=== PATIENT | male | born 1965 | race Caucasian/White ===

== ENCOUNTER 2016-08-10 19:00 | Inpatient (IN) | payer OTHER ==
--- NOTE | ~2016-08-10 | PA ---
Unit #: [id number] #: [id number] Patient: ANGELIQUE JOHNSON [id number] [place] [address] [id number] I MR#: [id number] NAME: ANGELIQUE JOHNSON ROOM: P204 Age: 51 Sex: M Admission Date: 08/10/2016 : 1965 Date of Assessment: Attending Physician: Edson Nguyễn M.D. Admitting Physician: Edson Nguyễn M.D. Primary Care Physician: Primary Care Physician No PSYCHIATRIC ASSESSMENT LOCATION [facility], [address] [place] [address], room #204, bed #1. INFORMANTS The patient and chart, both seem reliable. CHIEF COMPLAINT "I need to stop drinking." HISTORY OF PRESENT ILLNESS This is a 51-year-old white male with a longstanding history of profound alcohol dependency going back many, many years with at least most recent 2-year stretch with 24 to 36 beers a day. The patient has had limited medical detox in the past [facility] and at times in the 80s with at least one episode of seizures back in the 80s. He denies any other drugs or substances of abuse, reports medical complications including neuropathy and ataxia as recent justifications for him trying to stop drinking as they were getting worse with time. PAST PSYCHIATRIC HISTORY Nothing to speak of in terms of overt treatment. Denies any history of antidepressants or any mood issues. Denies any history of SI, HI or any psychosis. FAMILY HISTORY Significant for widespread chemical dependency issues. Beyond that, noncontributory. SOCIAL HISTORY The patient is single. No children. Lives alone. Currently unemployed and has a bachelor's degree according to patient. MEDICAL HISTORY Neuropathy and ataxia, both alcohol related; hypertension; beyond that noncontributory. MEDICATION HISTORY Includes Zestril 10 mg daily; beyond that noncontributory. ALLERGIES Include no known drug allergies. SUBSTANCE ABUSE HISTORY Unit #: [id number] #: [id number] Patient: ANGELIQUE JOHNSON As noted above. No overt treatments from typical detox treatment program standpoint. Other symptoms as noted. MENTAL STATUS EXAMINATION General appearance; this is a poorly groomed white male, appears much older than stated age. Fair cooperation, good eye contact, somewhat disheveled appearance. Speech was clear, coherent. Well prosody. Mood was dysphoric with a constricted affect. Thought process and content were grossly organized and linear. No overt evidence of psychosis. No SI, no HI reported or elicited. The patient was cooperative and oriented. The patient's memory was grossly intact. Associations are normal. Cognitive function was at baseline. Alert and oriented x4. Insight and judgment are poor. ASSETS AND LIABILITIES Assets include previous exposure to some detox symptoms. Liabilities being no official detox treatment, unemployed, single, continued alcohol use. ADMITTING DIAGNOSES 1. Alcohol dependency with withdrawal. 2. Hypertension by history. 3. Neuropathy, alcohol related. PSYCHIATRIC PLAN Continue patient's admission for safety and stabilization for ongoing issues with alcohol dependency. The patient has been placed on alcohol withdrawal protocol, monitor accordingly. Has been maintained on his home dose of lisinopril for hypertension. Needs to be monitored for additional issues and changes. Treatment goal is being resolution of symptoms in safe controlled environment. His current symptoms including tremors, aches and pains, poor energy, fatigue, sleep disturbance, and GI upset. Discharge planning includes community resources in his home area. ESTIMATED LENGTH OF STAY Approximately 4 to 5 days depending on the patient's progress and response to treatment. Dictated by... Edson Nguyễn M.D. TAI/frida TD: 08/12/2016 02:25 JOB #: [id number] PSYCHIATRIC ASSESSMENT Page 1 of 1 X Edson Nguyễn MD X PSYCHIATRIC ASSESSMENT
--- NOTE | ~2016-08-10 | DS ---
Unit #: [id number] #: [id number] Patient: ANGELIQUE JOHNSON [id number] [place] [address] [id number] I MR#: [id number] NAME: ANGELIQUE JOHNSON ROOM: [facility] Age: 51 Sex: M Admission Date: 08/10/2016 : 1965 Discharge Date: 08/15/2016 Attending Physician: Edson Nguyễn M.D. Primary Care Physician: Primary Care Physician No DISCHARGE SUMMARY REASON FOR ADMISSION Alcohol dependency with withdraw. DIAGNOSTIC STUDIES Pertinent laboratory data included, routine blood work, CM that was grossly within normal parameters, CBC that was also grossly within normal parameters, RPR that was not reactive. Urine toxicology that was positive for benzodiazepines and marijuana. Urinalysis positive for leukocyte esterase, 1+ urobilinogen, and 5-10 URBCs, 2-5 hyaline casts but otherwise negative. HOSPITAL COURSE The patient was admitted for safety and stabilization for alcohol dependency issues, and was placed on appropriate [facility] protocol. The patient also had his home medications continued for his various health issues including hypertension and neuropathy, as well as a rash. The patient showed significant signs of withdrawal including tremors, diaphoresis, fluctuating vital signs, aches, pains, restless legs, sleep disturbance, nausea and vomiting. The patient did tolerate the detox process, overall, and benefitted well from the medications. The patient, also in addition to his home medications, was placed on trazodone 100 mg at bedtime for sleep, and was discharged on a low dose of Vistaril 25 mg twice a day, for break-through anxiety. Overall, at the time of discharge, the patient was denying any acute detox symptoms. His energy had markedly improved. He was more energetic, up and about on the unit. The patient was actually initially a falls risk when he came in and that quickly resolved at the time of discharge. At that point, the patient was also reporting plans to go to a residential program in his home area with information provided by social work administrator here. No issues with SI or HI. The patient was physically improved and is appropriate for discharge. DISCHARGE DIAGNOSES [place] I Alcohol dependency and withdraw. [place] II [place] III Hypertension. Neuropathy. [place] IV [place] V DISCHARGE MEDICATIONS Included: 1. Elocon 0.1 ointment to be applied topically twice a day for rash Unit #: [id number] #: [id number] Patient: ANGELIQUE JOHNSON 2. Zestril 10 mg daily for hypertension 3. Ibuprofen over the counter as needed for pain 4. Vistaril 25 mg twice a day for break-through anxiety CONDITION AT DISCHARGE Improved. PROGNOSIS Guarded given the patient's history of multiple relapses. DIET AND ACTIVITY Diet is heart healthy and encouraged. Activity is encouraged as tolerated with sobriety recommended. Dictated by... Cinthia Ang/bimal TD: 08/15/2016 12:37 JOB #: [id number] DISCHARGE SUMMARY Page 1 of 1 X Edson Nguyễn MD X DISCHARGE SUMMARY
--- NOTE | ~2016-08-10 | PN ---
Unit #: [id number] #: [id number] Patient: ANGELIQUE JOHNSON [id number] [place] [address] [id number] I MR#: [id number] NAME: ANGELIQUE JOHNSON ROOM: P204 Age: 51 Sex: M Admission Date: 08/10/2016 : 1965 Attending Physician: Edson Nguyễn M.D. Admitting Physician: Edson Nguyễn M.D. Primary Care Physician: Primary Care Physician Constance ELIZABETH NOTES DATE OF SERVICE: 08/12/2016 LOCATION [facility], [address] [place] [address], room #204, bed #1. SUBJECTIVE This is a 51-year-old male here in the hospital with ongoing issues with detox concerns. The patient reports still feeling very poorly with poor sleep, tremors, aches and pain, headache, anxiety, upset stomach, muscle cramps especially in his legs with twitching. The patient is still fairly isolative to self but eye contact was improved today. The patient denied any issues during his suicidal thoughts today. The patient is compliant with medications per staff. MENTAL STATUS EXAMINATION General appearance; this is a limitedly groomed white male, appears older than stated age. Good eye contact today. Speech was clear and coherent with normal prosody. Mood was dysphoric with a blunted affect. Thought process and content were grossly organized and linear. No overt evidence of psychosis. No SI. No HI reported or elicited. The patient's memory was grossly intact. Associations were normal. Cognitive function was at baseline. Alert and oriented x4. Insight and judgment are limited, but improving. RECOMMENDATIONS We will continue the patient's admission for ongoing symptoms as noted above for detox needs. The patient still in the midst of escalating symptoms. We will continue with program and monitor accordingly with care being ongoing as this progress. Dictated by... Edson Nguyễn M.D. SB/modl TD: 08/12/2016 16:14 JOB #: [id number] Unit #: [id number] #: [id number] Patient: ANGELIQUE JOHNSON PROGRESS NOTES Page 1 of 1 X Edson Nguyễn MD PROGRESS NOTE
--- NOTE | ~2016-08-10 | PN ---
Unit #: [id number] #: [id number] Patient: ANGELIQUE JOHNSON [id number] [facility] [address] [place] [address] [id number] I MR#: [id number] NAME: ANGELIQUE JOHNSON ROOM: P204 Age: 51 Sex: M Admission Date: 08/10/2016 : 1965 Attending Physician: Edson Nguyễn M.D. Admitting Physician: Edson Nguyễn M.D. Primary Care Physician: Primary Care Physician Constance ELIZABETH NOTES DATE 08/13/2016 DISCUSSION SUBJECTIVE UPDATE This is a 51-year-old white male, here with ongoing issues with detox. The patient continuing to have issues with aches, pains, restlessness, twitching legs, limited sleep issues, GI upset positive for vomiting. The patient compliant with medications but remains isolative to room with poor habitus. No active SI or mood issues today. MENTAL STATUS EXAMINATION General appearance is a limitedly groomed white male who appears older than stated age, fair cooperative, responsiveness with improving eye contact. Speech was clear and coherent with paucity. Mood was dysphoric with a constricted affect. Thought process and content were fairly organized, linear, no overt evidence of psychosis, no SI, no HI reported or elicited. The patient's memory was grossly intact. Associations were normal. Cognitive functioning was at baseline. He was alert and oriented x4. Insight and judgment is limited but improving. ASSESSMENT AND RECOMMENDATIONS We will continue the patient's admission for ongoing detox issues for symptoms as noted above. Especially concerning is the patient's vomiting. He has been able to keep down medications thus far but will need to be monitored closely for possibly dehydration risk and encourage ambulation and socialization as is more tolerable. Stabilization is ongoing. Dictated by... Cinthia Ang/bimal TD: 08/15/2016 05:24 JOB #: [id number] Unit #: [id number] #: [id number] Patient: ANGELIQUE OJHNSON PROGRESS NOTES Page 1 of 1 X Edson Nguyễn MD X PROGRESS NOTE
--- NOTE | ~2016-08-10 | PN ---
Unit #: [id number] #: [id number] Patient: ANGELIQUE JOHNSON [id number] [facility] [address] [place] [address] [id number] I MR#: [id number] NAME: ANGELIQUE JOHNSON ROOM: P204 Age: 51 Sex: M Admission Date: 08/10/2016 : 1965 Attending Physician: Edson Nguyễn M.D. Admitting Physician: Edson Nguyễn M.D. Primary Care Physician: Primary Care Physician Constance KIM PROGRESS NOTES DATE 08/14/2016 SUBJECTIVE UPDATE This is a 51-year-old male here in the hospital for issues with substance abuse dependency and withdrawal. Patient continuing to complain of issues with energy, sleep disturbance, aches and pains and restlessness but he does report nauseousness is better today. He was better able to tolerate food last night. Does report his mood is better today as well. Patient seemed more energetic but still fairly isolative to self and still complaining of poor sleep last night compared to the night's previously, he said he got little to none. MENTAL STATUS EXAMINATION General appearance is a limitedly groomed white male appears older than his stated age, fairly cooperative, responsive to interview process with improving eye contact. Speech was clear and coherent with normal prosody. Mood was "better" with a congruent affect with a constricted affect. Thought process and content were grossly organized and linear. No overt evidence of psychosis. No SI, no HI reported or elicited. Patient's memory was grossly intact. Associations were normal. Cognitive function was at baseline. He was alert and oriented times four. Insight and judgement is improving. RECOMMENDATIONS Will continue patient's admission for ongoing detox issues as they do appear to be resolving well. Will add trazodone tonight to help with patient's sleep with possible disposition in the morning if progress is continued. Will re-evaluate at that time. Symptoms residual as noted above. Dictated by... Edson Nguyễn M.D. TAI/keeley TD: 08/15/2016 20:07 JOB #: [id number] Unit #: [id number] #: [id number] Patient: ANGELIQUE JOHNSON PROGRESS NOTES Page 1 of 1 X Edson Nguyễn MD PROGRESS NOTE
--- NOTE | ~2016-08-10 | HP ---
Unit #: [id number] #: [id number] Patient: ABAD JOHNSON [id number] [place] [address] [id number] I MR#: [id number] NAME: ABAD JOHNSON ROOM: P204 Age: 51 Sex: M Admission Date: 08/10/2016 : 1965 Attending Physician: Edson Nguyễn M.D. Admitting Physician: Edson Nguyễn M.D. Primary Care Physician: Primary Care Physician No HISTORY AND PHYSICAL HISTORY OF PRESENT ILLNESS Abad is a 51-year-old male admitted on 08/10/[address] [place] [address] for detox from alcohol. PAST MEDICAL HISTORY History of neuropathy, ataxia, and hypertension. PAST SURGICAL HISTORY History of a cervical spine fusion in 2010 and a pilonidal cyst removal in childhood. SOCIAL HISTORY Smokes 15 cigarettes daily, drinks 2 pints of alcohol daily, and 30 beers. No illegal drug use. He is currently single and living alone. FAMILY HISTORY Noncontributory. REVIEW OF SYSTEMS CONSTITUTIONAL: No fever or chills. HEENT: Denies any sore throat, ear pain or runny nose. CARDIOVASCULAR: Denies chest pain, irregular heart rhythm or palpitations. CHEST: Denies shortness of breath or cough. No hemoptysis. GASTROINTESTINAL: Denies nausea, vomiting, diarrhea or chronic constipation. ENDOCRINE: Denies history of increased thirst or urination. No recent significant weight loss or gain. GENITOURINARY: Denies dysuria, frequency, or hematuria. SKIN: Denies any rashes. HEMATOLOGIC: Denies history of increased bleeding or bruising. MUSCULOSKELETAL: Denies any hot, swollen joints. No generalized muscle pain. NEUROLOGIC: Denies problems with vision or speech. No frequent, severe headaches. No numbness, tingling or weakness in any extremities. Denies loss of bladder or bowel control. CURRENT MEDICATIONS Lisinopril and ibuprofen. ALLERGIES No known drug allergies. PHYSICAL EXAMINATION Unit #: [id number] #: [id number] Patient: ABAD JOHNSON GENERAL: Alert, oriented, no acute distress. VITAL SIGNS: Blood pressure 141/84, heart rate 107. HEIGHT: 6 feet 0. WEIGHT: 180 pounds. SKIN: Warm, dry. No rashes or lesions, track bailey, cuts, etc. HEENT: Normocephalic. TMs not viewed. Oronasal passages clear. Conjunctivae clear. PERRLA. EOM is intact. NECK: No lymphadenopathy or thyromegaly. HEART: Regular rate and rhythm. No murmur, gallop, or rub. LUNGS: Clear to auscultation bilaterally. ABDOMEN: Soft, nontender without palpable masses or hepatosplenomegaly. : Not assessed. EXTREMITIES: No evidence of cyanosis, clubbing, or edema. Moves all extremities independently without obvious deficit. NEUROLOGICAL: Grossly within normal limits. Cranial Nerves: II: Visual braxton are intact. III, IV AND : Extraocular movements are intact. Pupils are equal, round and reactive to light. V: Facial sensation is grossly normal. VII: Facial movements and expression are normal. VIII: Auditory acuity grossly intact. IX, X: Uvula is midline. Phonation is normal. XI: Patient shrugs shoulders and turns head normally. XII: Tongue protrudes in the midline. Sensory and Motor Function: Sensory and motor sensation is grossly normal. Motor: moves all extremities well. Coordination: Gait is normal. Deep Tendon Reflexes: Intact. IMPRESSION 1. Psychiatric admission. 2. Hypertension. 3. Neuropathy. 4. Ataxia. RECOMMENDATIONS PSYCHIATRIC: Per psychiatrist. MEDICAL: No contraindication to participating in this facility's activities. MEDICAL PROGNOSIS Good. MEDICAL CONDITION Stable. Dictated by..Torie Neal TD: 08/12/2016 07:25 JOB #: [id number] Unit #: [id number] #: [id number] Patient: ABAD JOHNSON HISTORY AND PHYSICAL Page 1 of 1 X ROSANA MENDOZA APRN HISTORY AND PHYSICAL
[2016-08-11 09:43] LABS: BASOPHIL# 0.1 X10e3 (0-0.3); BASOPHIL% 0.7 % (0-2.5); EOSINOPHIL# 0.1 X10e3 (0-0.7); EOSINOPHIL% 1.1 % (0.0-7.0); HEMATOCRIT 41.8 % (38.0-50.0); HEMOGLOBIN 13.9 gm/dL (13.0-16.0); LYMPHOCYTE# 3.1 X10e3 (1.0-3.5); MEAN CELL VOLUME 93.9 FL (83-96); MEAN CORPUSCULAR HEMOGLOBIN 31.3 PG (28-34); MEAN CORPUSCULAR HGB CONC 33.3 g/dL (30-36); MEAN PLATELET VOLUME 6.9 FL (6.5-11.5); MONOCYTE# 0.4 X10e3 (0-1.0); MONOCYTE% 5.1 % (3.0-12.0); NEUTROPHIL# 3.6 X10e3 (1.5-7.1); NEUTROPHIL% 50.1 % (40-75); PLATELET COUNT 181 X10e3 (140-420); RED BLOOD COUNT 4.45 X10e (3.90-5.60); RED CELL DISTRIBUTION WIDTH 13.9 % (11.0-15.5); WHITE BLOOD COUNT 7.2 X10e3 (4.0-10.5)
[2016-08-11 09:44] LABS: DIFF IND NO
[2016-08-11 10:05] LABS: ALBUMIN SERUM 3.7 g/dL (3.5-5.0); BILIRUBIN,TOTAL 0.6 mg/dL (0.2-2.0); BUN/CREATININE RATIO 12.85; CREATININE SERUM 0.7 mg/dL (0.6-1.4); GLOM FILT RATE Estimated 109.3 mL/min (>60); POTASSIUM 3.8 mmol/L (3.5-5.1); PROTEIN TOTAL SERUM 6.5 g/dL (6.0-8.3)
[2016-08-12 14:30] LABS: URINE APPEARANCE TURBID; URINE BLOOD NEG (NEG); URINE COLOR DK YELLOW; URINE GLUCOSE NEG (NEG); URINE KETONE TRACE (NEG); URINE LEUKOCYTE ESTERASE TRACE (NEG); URINE NITRATE NEG (NEG); URINE PH 6.5 (5-8); URINE PROTEIN NEG (NEG); URINE SPECIFIC GRAVITY 1.021 (1.003-1.035)
[2016-08-12 14:34] LABS: URINE BACTERIA AUWI NEG (NEGATIVE); URINE SQUAMOUS EPITHELIAL CELL NONE SEEN /[HPF]; UWBCS1 AUWI 0-2 (0-5)
[2016-08-12 14:39] LABS: URINE BILIRUBIN NEG (NEG)
[2016-08-12 15:02] LABS: AMPHETAMINE NEG (NEG); BARBITURATES NEG (NEG); BENZODIAZEPINES POS (NEG); COCAINE NEG (NEG); MARIJUANA NEG (NEG); OPIATES NEG (NEG); TRICYCLIC ANTIDEPRESSANTS POS (NEG); U METHADONE NEG (NEG)
== END 2016-08-15 16:11 | DRG 897 ==
LOC: P2S 23:09
PROVIDERS: Psychiatry & Neurology Psychiatry
PROC: HZ2ZZZZ Detoxification Services for Substance Abuse Treatment (ICD-10-PCS; principal; 2016-08-10)
DX: F10.230 Alcohol dependence with withdrawal, uncomplicated (principal); G62.1 Alcoholic polyneuropathy; I10 Essential (primary) hypertension; Z81.4 Family history of other substance abuse and dependence; F17.210 Nicotine dependence, cigarettes, uncomplicated; R27.0 Ataxia, unspecified
CPT/HCPCS: 80053; 80307; 81003; 85025; 86592